=== PATIENT | male | born 1995 | race Caucasian/White ===

== ENCOUNTER → 2018-07-07 | Outpatient (CLI) | payer OTHER | LOC: COL.RAD 12:27 | DX: N13.39 Other hydronephrosis (principal) | CPT/HCPCS: A9562 ==

== ENCOUNTER → 2019-03-09 | Outpatient (CLI) | payer OTHER | LOC: COL.RAD 11:55 | DX: N13.0 Hydronephrosis with ureteropelvic junction obstruction (principal); Z96.0 Presence of urogenital implants | CPT/HCPCS: A9562 ==